=== PATIENT | female | born 1965 | race Caucasian/White ===

== ENCOUNTER 2017-02-02 12:45 | Emergency (ER) | payer OTHER ==
[~2017-02-02] VITALS: Ht 157.5 cm; Wt 74.0 kg
[~2017-02-02 12:45] MED LIST: CIPR-9 PO
[2017-02-02 12:47] VITALS: BP 136/74; PULSE 68; RESP 16; TEMP 97.7; O2SAT 98
--- NOTE | 2017-02-02 13:50 | RADRPT ---
EXAM DATE/TIME: 02/02/2017 13:40 [facility] COMPARISON: FOOT RIGHT COMPLETE ([id number]), September 18, 2014, 11:51. INDICATIONS : Fell 2 weeks ago, has right foot pain MEDICAL HISTORY : right foot fracture SURGICAL HISTORY : spinal ENCOUNTER: Initial ACUITY: 2 weeks PAIN SCORE: 8/10 LOCATION: Right foot FINDINGS: There is no fracture or subluxation demonstrated of the right foot. Previously seen fifth metatarsal fracture has healed. Moderate degenerative changes are seen of the sesamoids. There is a small heel spur. Type I accessory navicular noted. CONCLUSION: 1. No acute fracture or subluxation of the right foot. 2. Old, healed fracture of the fifth metatarsal. 3. Chronic findings as above. Trav Zhu MD on February 02, 2017 at 13:47 Board Certified Radiologist. This report was verified electronically.
[2017-02-02] MEDS ORDERED: IBUP1TAB7 PO (14:08)
--- NOTE | 2017-02-02 14:09 | PD ---
HPI Chief Complaint: Injury Time Seen by Provider: 14:00 Travel History International Travel<30 days: No Contact w/Intl Traveler<30days: No Traveled to known affect area: No History of Present Illness HPI 51-year-old female with great toe pain after a hyper extension injury 2 weeks ago. Pain is located at the base of the great toe. Worse with movement and weightbearing relieved with rest. Symptom severity is mild. PFSH Past Medical History Medical History: Denies Significant Hx Hx Anticoagulant Therapy: No Diabetes: No Diminished Hearing: No Tetanus Vaccination: < 5 Years Influenza Vaccination: No ?: Not Menopausal: Yes Past Surgical History Section: Yes Hysterectomy: Yes Other Surgery: Yes (CARPLE TUNNEL RIGHT WRIST) Social History Alcohol Use: Yes (RARELY) Tobacco Use: No Substance Use: No Allergies-Medications (Allergen,Severity, Reaction): Coded Allergies: No Known Allergies (Verified Adverse Reaction, Unknown, 02/02/17) Reported Meds & Prescriptions Reported Meds & Active Scripts Active Ibuprofen 800 Mg Tab 800 Mg PO Q6HR PRN Review of Systems Except as stated in HPI: all other systems reviewed are Neg Physical Exam Narrative GENERAL: Alert female in no distress SKIN: Warm and dry. HEAD: Normocephalic. EYES: No scleral icterus. No injection or drainage. NECK: Supple, trachea midline. MUSCULOSKELETAL: No cyanosis. Left foot: Notable pain and mild swelling at the base of the left great toe. No deformity. Brisk cap refill. Data Data Last Documented VS Vital Signs Date Time Temp Pulse Resp B/P (MAP) Pulse Ox O2 Delivery O2 Flow Rate FiO2 02/02/17 12:47 97.7 68 16 136/74 (94) 98 Orders Orders Foot, Limited (2vws) (02/02/17 ) Post Op Boot (Shoe) (02/02/17 ) Ed Discharge Order (02/02/17 14:09) Shoe Cast (02/02/17 ) MDM Medical Decision Making Medical Screen Exam Complete: Yes Emergency Medical Condition: Yes Differential Diagnosis Toe sprain, fracture, dislocation Narrative Course 51-year-old female with great toe pain after a hyper extension injury 2 weeks ago. Patient presents today with a turn of pain within the toe at the site of the previous injury. X-rays negative for fracture. Diagnosis Primary Impression: Toe sprain Qualified Codes: S93.509A - Unspecified sprain of unspecified toe(s), initial encounter Referrals: Primary Care Physician Additional Instructions: Ice and elevate the extremity take ibuprofen as needed for pain. Scripts Ibuprofen (Ibuprofen) 800 Mg Tab 800 MG PO Q6HR Y for PAIN, #40 TAB 0 Refills Prov: Antonia Peck 02/02/17 Disposition: 01 DISCHARGE HOME Condition: Stable Antonia Peck Feb 02, 2017 14:09
== END 2017-02-02 14:16 | disposition home or self-care (01) ==
LOC: PHEFT 12:45
DX: S93.509A Unspecified sprain of unspecified toe(s), initial encounter (principal); X50.9XXA Other and unspecified overexertion or strenuous movements or postures, initial encounter
CPT/HCPCS: 73620; 99283; L3260